=== PATIENT | female | born 1955 | race Two or more races ===

== ENCOUNTER 2021-04-16 09:54 | Outpatient (CLI) | payer OTHER ==
[~2021-04-16 09:54] MED LIST: CELEBREX50 MG PO
== END 2021-04-16 10:08 | disposition home or self-care (01) ==
LOC: SONOGRAMA 09:54
PROVIDERS: ATTEND Pathology Anatomic Pathology & Clinical Pathology
DX: E04.1 Nontoxic single thyroid nodule (principal)